=== PATIENT | female | born 1955 | race African-American/Black ===

== ENCOUNTER 2017-03-05 16:42 | Emergency (ER) | payer MEDICARE ==
[~2017-03-05] VITALS: Ht 160 cm; Wt 72.6 kg
[~2017-03-05 16:42] MED LIST: ALBUTEROL SULF8.5 GM INH; AMOXICILLIN500 MG ORAL; ASPIR 8181 MG ORAL; CYCLOBENZAPRINE10 MG ORAL; IBUPROFEN600 MG ORAL; KEFLEX500 MG ORAL; LEVAQUIN500 MG ORAL; LORAZEPAM1 MG ORAL; NORCO 5-325 TA1 EAC1 ORAL; NORCO 5-325 TA1 EACH ORAL; PEPCID40 MG PO; PERCOCET 5-3251 EACH ORAL; PRAVACHOL20 MG PO; PROMETHAZINE-C118 M1 ORAL; TRAMADOL HCL50 MG ORAL; TYLENOL PM EX-1 EACH PO
[2017-03-05 16:54] VITALS: BP 148/82
[2017-03-05] MEDS ORDERED: Tylenol #3 tab (300mg/30mg) ORAL ONE (17:15)
[2017-03-05] MEDS ORDERED: ACETAMINOPHEN-1 EAC1 ORAL (18:09)
[2017-03-05] MEDS ORDERED: IBUPROFEN600 MG ORAL (18:09)
[2017-03-05 18:14] VITALS: BP 137/79
--- NOTE | 2017-03-05 21:22 | Emergency Room Report ---
History of Present Illness General Chief Complaint: Pain Source: Patient Present Illness HPI The patient is a 61-year-old female with a history of arthritis and sciatica presenting for right wrist and right hip pain. The patient denies any injury to these areas and states that she has had pain to these areas before. The patient states that pain to the right wrist as an 8/10 dull ache and does not radiate. Pain worse with movement. Pain to the right hip is described as a 8/ 10 dull ache and radiates down the back of the right leg. Pain worse with bending over and walking. The patient states that she has tried Motrin which has not helped. She states that she was prescribed Dante in the past which did help. She denies any other symptoms Allergies: Coded Allergies: No Known Allergies (Unverified , 09/29/12) Patient History Past Medical History: see triage record Pertinent Family History: none Now: No Reviewed Nursing Documentation: PMH: Agreed, PSxH: Agreed Nursing Documentation-PMH Past Medical History: No History, Except For Hx Hypertension: No Hx Pacemaker: No Hx Asthma: No Hx COPD: No Hx Diabetes: No Hx Cancer: No Hx Gastrointestinal Problems: No Hx Dialysis: No Hx Neurological Problems: No Hx Cerebrovascular Accident: No Hx Transient Ischemic Attacks: Yes Hx Seizures: No Review of Systems All Other Systems: negative except mentioned in HPI Physical Exam Vital Signs Date Time Temp Pulse Resp B/P Pulse Ox O2 Delivery O2 Flow Rate FiO2 03/05/17 16:48 97.7 76 16 148/82 100 Room Air Sp02 EP Interpretation: reviewed, normal General Appearance: no apparent distress, alert, GCS 15, non-toxic Head: normocephalic, atraumatic Eyes: bilateral eye PERRL, bilateral eye normal inspection ENT: hearing grossly normal, normal pharynx, no angioedema, normal voice Musculoskeletal: back normal, gait/station normal, normal range of motion, no calf tenderness, pelvis stable, tender - diffuse R wrist Neurologic: alert, oriented x3, responsive, motor strength/tone normal, sensory intact, normal gait, speech normal Psychiatric: judgement/insight normal, memory normal, mood/affect normal, no suicidal/homicidal ideation Reflexes: 2+ knee (R), 2+ knee (L) Medical Decision Making PA Attestation Dr. Summers is my supervising physician. Patient management was discussed with my supervising physician Diagnostic Impression: Primary Impression: Arthritis Additional Impression: Sciatica Qualified Codes: M54.31 - Sciatica, right side ER Course The patient is a 61-year-old female with a history of arthritis and sciatica presenting for right wrist and right buttock pain Ddx considered include but not limited to sprain/strain, fracture, contusion, arthritis, sciatica Physical exam: Afebrile. No apparent distress Right wrist: Full active range of motion. No obvious deformity. No edema. No erythema. There is diffuse tenderness to palpation. Right leg: There is tenderness to palpation over the right mid buttock. Normal gait. No obvious deformity The patient is given pain medication and needs to followup with PMD and pain management for further care. ER precautions are given Other X-Ray Diagnostic Results Other X-Ray Diagnostic Results : X-Ray Ordered: R wrist Date: March 05, 2017 EP Interpretation: Yes Findings: no fractures, no dislocation, no soft tissue swelling Number of Views: 3 PA Scribe Text I am acting as scribe for my supervising physician. My supervising physician's interpretation of the R wrist xrays are there are no fractures, dislocations or soft tissue swelling. Last Vital Signs Date Time Temp Pulse Resp B/P Pulse Ox O2 Delivery O2 Flow Rate FiO2 03/05/17 18:14 97.7 77 16 137/79 100 Room Air Status: improved Disposition: HOME, SELF-CARE Condition: Improved Scripts Acetaminophen With Codeine (T#3) (TYLENOL #3 TAB*) Y Tab 1 TAB ORAL Q6HR Y for For Pain, #10 TAB Prov: SALANJESSICA P.A. 03/05/17 Ibuprofen* (MOTRIN*) 600 Mg Tablet 600 MG ORAL Q6H Y for For Pain, #30 TAB Prov: TERZIANJESSICA P.A. 03/05/17 Referrals: NON PHYSICIAN (PCP) Patient Instructions: Sciatica, Arthritis Additional Instructions: I discussed my findings with the patient. All questions and concerns have been answered. Treatment and medication compliance have been addressed. I advised the patient that they need to follow up with PMD in 3-5 days. Return to ED if symptoms worsen, new symptoms arise, or if needed for any reason. Patient verbalized understanding of discharge instructions. JESSICA [email or web address].ASharon March 05, 2017 21:22
--- NOTE | 2017-03-06 10:35 | Diagnostic Imaging Report ---
Indication: Right wrist pain Technique: XRAY WRIST MIN 3V RIGHT Comparison: None Findings: There is no radiographically evident acute fracture or dislocation. Radiocarpal joint space narrowing is noted. There is a corticated ossific density radial to the radiocarpal joint space. There is also narrowing and spurring of the triscaphe and first carpometacarpal articulations. Osteopenia is noted. Impression: No radiographically evident acute fracture or dislocation. Right wrist arthrosis as above. Approximately 7 mm apparently corticated ossific density radial to the radiocarpal joint space may be related to an old injury. Clinical correlation recommended. Comparison to prior study should be made if available.
== END 2017-03-05 18:15 | disposition home or self-care (01) ==
LOC: EMR 17:34
DX: M19.90 Unspecified osteoarthritis, unspecified site (principal); M25.551 Pain in right hip; M54.31 Sciatica, right side; Z86.73 Personal history of transient ischemic attack (TIA), and cerebral infarction without residual deficits
CPT/HCPCS: 99284

== ENCOUNTER 2017-07-05 16:17 | Emergency (ER) | payer MEDICARE ==
[~2017-07-05] VITALS: Ht 160 cm; Wt 72.6 kg
[~2017-07-05 16:17] MED LIST changes: +ACETAMINOPHEN-1 EAC1 ORAL
[2017-07-05] MEDS ORDERED: NKM (16:25)
[2017-07-05 16:36] VITALS: BP 129/80
[2017-07-05] MEDS ORDERED: Tropicamide 1% Opth Soln RIGHT EYE ONE (16:45)
[2017-07-05] MEDS ORDERED: Phenylephrine 10% Opth Soln 5ml BOTH EYES ONE (16:45)
[2017-07-05] MEDS ORDERED: Proparacaine 0.5% Opth Soln 15ml BOTH EYES ONE (16:45)
[2017-07-05] MEDS ORDERED: Tropicamide 1% Opth Soln LEFT EYE ONE (16:45)
[2017-07-05 17:19] LABS: MEAN CORPUSCULAR HEMOGLOBIN 29.1 PG (27.0-31.0); MEAN CORPUSCULAR HGB CONC 33.4 G/DL (32.0-36.0); MEAN CORPUSCULAR VOLUME 87 FL (80-99); MEAN PLATELET VOLUME 7.5 FL (6.5-10.1); PLATELET COUNT 212 K/UL (150-450); RED BLOOD COUNT 4.68 M/UL (4.20-5.40); RED CELL DISTRIBUTION WIDTH 11.8 % (11.6-14.8); WHITE BLOOD COUNT 6.3 K/UL (4.8-10.8)
[2017-07-05 17:29] LABS: PROTHROMBIN TIME 10.1 SEC (9.30-11.50)
[2017-07-05 17:33] LABS: ALANINE AMINOTRANSFERASE 14 U/L (3-33); ALBUMIN/GLOBULIN RATIO 1.5 (1.0-2.7); ANION GAP 10 (5-15); ASPARTATE AMINO TRANSFERASE 18 U/L (5-40); CALCIUM 10.8 mg/dL (8.6-10.2); CARBON DIOXIDE 28 mEQ/L (20-30); CHLORIDE 103 mEQ/L (98-107); CREATININE 0.8 mg/dL (0.5-0.9); GLOMERULAR FILTRATION RATE > 60 mL/min (>60); HEMOLYSIS 16; POTASSIUM 3.6 mEQ/L (3.4-4.9); SODIUM 141 mEQ/L (135-145); TOTAL PROTEIN 7.5 g/dL (6.6-8.7)
[2017-07-05 18:16] LABS: BAND NEUTROPHILS % (MANUAL) 6 % (0-8); BASOPHILS % (MANUAL) 1 % (0-2); EOSINOPHILS % (MANUAL) 2 % (0-3); LYMPHOCYTES % (MANUAL) 50 % (20-45); NEUTROPHILS % (MANUAL) 36 % (45-75); TOTAL CELLS COUNTED 100
[2017-07-05 18:17] LABS: PLATELET ESTIMATE ADEQUATE; PLATELET MORPHOLOGY NORMAL
[2017-07-05 19:30] VITALS: BP 132/84
[2017-07-05 20:12] VITALS: BP 132/84
[2017-07-05] MEDS ORDERED: Acetaminophen 500mg (ES) tab ORAL ONE (20:15)
--- NOTE | 2017-07-05 23:07 | Emergency Room Report ---
History of Present Illness General Chief Complaint: Eye Problems Source: Patient Present Illness HPI The patient is a 61-year-old female presenting for left eye visual change. The patient states that she began to notice black specks floating around eye yesterday for no known reason. She did admit to mild pain at that time described as a 5/10 dull ache to the left eye but denies any pain at this time. She went to see her primary doctor who told her to come to the emergency department. She denies any blurred vision. She denies other visual disturbances such as flashing lights or seeing halos. She denies full occlusion of her vision. She denies other symptoms including nausea, vomiting, fever, chills, headache, dizziness, chest pain, shortness of breath Allergies: Coded Allergies: No Known Allergies (Unverified , 09/29/12) Patient History Past Medical History: see triage record Pertinent Family History: none Last Menstrual Period: Post Reviewed Nursing Documentation: PMH: Agreed, PSxH: Agreed Nursing Documentation-PMH Hx Hypertension: No Hx Pacemaker: No Hx Asthma: No Hx COPD: No Hx Diabetes: No Hx Cancer: No Hx Dialysis: No Hx Cerebrovascular Accident: No Hx Transient Ischemic Attacks: Yes Hx Seizures: No Review of Systems All Other Systems: negative except mentioned in HPI Physical Exam Vital Signs Date Time Temp Pulse Resp B/P (MAP) Pulse Ox O2 Delivery O2 Flow Rate FiO2 07/05/17 16:20 97.5 73 16 129/80 96 Room Air Sp02 EP Interpretation: reviewed, normal General Appearance: no apparent distress, alert, GCS 15, non-toxic Head: normocephalic, atraumatic Eyes: bilateral eye PERRL, bilateral eye EOMI, bilateral eye visual acuity - 20 /20 ENT: hearing grossly normal, normal pharynx, no angioedema, normal voice Respiratory: chest non-tender, lungs clear, normal breath sounds, speaking full sentences Cardiovascular #1: regular rate, rhythm, no edema Musculoskeletal: back normal, gait/station normal, normal range of motion, non- tender Neurologic: alert, oriented x3, responsive, motor strength/tone normal, sensory intact, speech normal Psychiatric: judgement/insight normal, memory normal, mood/affect normal, no suicidal/homicidal ideation Skin: normal color, no rash, warm/dry, well hydrated Lymphatic: no adenopathy Medical Decision Making PA Attestation Dr. Summers is my supervising physician. Patient management was discussed with my supervising physician Diagnostic Impression: Primary Impression: Retinal hemorrhage of left eye ER Course The patient is a 61-year-old female presenting for left eye visual change. Differential diagnoses considered but not limited to: Retinal detachment, retinal hemorrhage, amaurosis fugax, conjunctivitis, corneal abrasion, acute glaucoma, among others Traveling Passenger Agent Dr. Rodas was consulted. He recommended Anesthetizing both eyes and then applying tropicamide and phenylephrine. After these medications took effect, he arrived at the emergency department where his physical exam found findings consistent with retinal hemorrhage. No active bleeding was seen at this time. He told the patient she needs to follow up with ophthalmology as soon as possible and to not exert herself in any way in order to prevent further bleeding or injury. The patient understands these instructions. She will followup as soon as possible. ER precautions given Laboratory Tests Test 07/05/17 17:05 White Blood Count 6.3 K/UL (4.8-10.8) Red Blood Count 4.68 M/UL (4.20-5.40) Hemoglobin 13.6 G/DL (12.0-16.0) Hematocrit 40.8 % (37.0-47.0) Mean Corpuscular Volume 87 FL (80-99) Mean Corpuscular Hemoglobin 29.1 PG (27.0-31.0) Mean Corpuscular Hemoglobin Concent 33.4 G/DL (32.0-36.0) Red Cell Distribution Width 11.8 % (11.6-14.8) Platelet Count 212 K/UL (150-450) Mean Platelet Volume 7.5 FL (6.5-10.1) Neutrophils (%) (Auto) % (45.0-75.0) Lymphocytes (%) (Auto) % (20.0-45.0) Monocytes (%) (Auto) % (1.0-10.0) Eosinophils (%) (Auto) % (0.0-3.0) Basophils (%) (Auto) % (0.0-2.0) Differential Total Cells Counted 100 Neutrophils % (Manual) 36 % (45-75) L Lymphocytes % (Manual) 50 % (20-45) H Monocytes % (Manual) 5 % (1-10) Eosinophils % (Manual) 2 % (0-3) Basophils % (Manual) 1 % (0-2) Band Neutrophils 6 % (0-8) Platelet Estimate Adequate Platelet Morphology Normal Red Blood Cell Morphology Normal Prothrombin Time 10.1 SEC (9.30-11.50) Prothrombin Time INR 1.0 (0.9-1.1) PTT 28 SEC (23-33) Sodium Level 141 mEQ/L (135-145) Potassium Level 3.6 mEQ/L (3.4-4.9) Chloride Level 103 mEQ/L (98-107) Carbon Dioxide Level 28 mEQ/L (20-30) Anion Gap 10 (5-15) Blood Urea Nitrogen 8 mg/dL (7-23) Creatinine 0.8 mg/dL (0.5-0.9) Estimate Glomerular Filtration Rate > 60 mL/min (>60) Glucose Level 94 mg/dL (74-106) Calcium Level 10.8 mg/dL (8.6-10.2) H Total Bilirubin 0.5 mg/dL (0.0-1.2) Aspartate Amino Transferase (AST) 18 U/L (5-40) Alanine Aminotransferase (ALT) 14 U/L (3-33) Alkaline Phosphatase 89 U/L (35-104) Total Protein 7.5 g/dL (6.6-8.7) Albumin 4.6 g/dL (3.5-5.2) Globulin 2.9 g/dL Albumin/Globulin Ratio 1.5 (1.0-2.7) Lab Results Impression Unremarkable Last Vital Signs Date Time Temp Pulse Resp B/P (MAP) Pulse Ox O2 Delivery O2 Flow Rate FiO2 07/05/17 19:30 97.4 62 17 132/84 97 Room Air Status: improved Disposition: HOME, SELF-CARE Condition: Improved Patient Instructions: Retinal Detachment Additional Instructions: I discussed my findings with the patient. All questions and concerns have been answered. Treatment and medication compliance have been addressed.Return to ED if symptoms worsen, new symptoms arise, or if needed for any reason. Patient verbalized understanding of discharge instructions. The patient was advised she needs to follow up with her primary doctor and retinal specialist as soon as possible. She will refrain from strenuous activity including exercise and weight lifting. She is given precautions to return to the emergency department JESSICA WALTERS Jul 05, 2017 23:07
== END 2017-07-05 20:12 | disposition home or self-care (01) ==
LOC: EMR 18:17
DX: H35.62 Retinal hemorrhage, left eye (principal); Z86.73 Personal history of transient ischemic attack (TIA), and cerebral infarction without residual deficits
CPT/HCPCS: 36415; 80053; 85007; 85025; 85610; 85730; 99284

== ENCOUNTER 2018-07-25 10:19 | Emergency (ER) | payer MEDICARE, OTHER ==
[~2018-07-25] VITALS: Ht 162.6 cm; Wt 72.6 kg
[~2018-07-25 10:19] MED LIST changes: +NKM
[2018-07-25 10:31] VITALS: BP 144/81
[2018-07-25 11:19] LABS: BASOPHILS % (AUTO) 1.8 % (0.0-2.0); EOSINOPHILS % (AUTO) 2.6 % (0.0-3.0); HEMATOCRIT 38.6 % (37.0-47.0); HEMOGLOBIN 12.5 G/DL (12.0-16.0); LYMPHOCYTES % (AUTO) 45.5 % (20.0-45.0); MEAN CORPUSCULAR VOLUME 87 FL (80-99); MONOCYTES % (AUTO) 6.5 % (1.0-10.0); NEUTROPHILS % (AUTO) 43.7 % (45.0-75.0); PLATELET COUNT 219 K/UL (150-450); RED BLOOD COUNT 4.45 M/UL (4.20-5.40); RED CELL DISTRIBUTION WIDTH 11.4 % (11.6-14.8); WHITE BLOOD COUNT 5.7 K/UL (4.8-10.8)
[2018-07-25 11:27] LABS: ANION GAP 8 mmol/L (5-15); BLOOD UREA NITROGEN 11 mg/dL (7-18); CALCIUM 10.2 MG/DL (8.5-10.1); CARBON DIOXIDE 27 MMOL/L (21-32); CHLORIDE 105 MMOL/L (98-107); CREATININE 0.7 MG/DL (0.55-1.30); POTASSIUM 3.9 MMOL/L (3.5-5.1); SODIUM 140 MMOL/L (136-145)
--- NOTE | 2018-07-25 11:28 | Diagnostic Imaging Report ---
Indication: Chest pain Technique: One view of the chest Comparison: 02/14/2016 Findings: Lungs and pleural spaces are clear. Heart size is normal. The aorta is tortuous. No significant interim change Impression: No acute process
[2018-07-25 11:44] LABS: ALANINE AMINOTRANSFERASE 22 U/L (12-78); ALBUMIN 3.7 G/DL (3.4-5.0); ALKALINE PHOSPHATASE 98 U/L (46-116); ASPARTATE AMINO TRANSFERASE 18 U/L (15-37); BILIRUBIN,TOTAL 0.3 MG/DL (0.2-1.0); CKMB < 0.5 NG/ML (0.0-3.6); CREATINE KINASE 61 U/L (26-308)
[2018-07-25 12:15] VITALS: BP 130/58
[2018-07-25] MEDS ORDERED: Lidocaine 2% Visc 15ml soln ORAL ONE (12:45)
[2018-07-25 13:11] LABS: APPEARANCE,URINE CLEAR; BILIRUBIN, URINE NEGATIVE (NEGATIVE); COLOR,URINE PALE YELLOW; GLUCOSE, URINE (UA) NEGATIVE (NEGATIVE); KETONES,URINE NEGATIVE (NEGATIVE); LEUKOCYTE ESTERASE ,URINE 1+ (NEGATIVE); NITRITE,URINE NEGATIVE (NEGATIVE); PH,URINE 7 (4.5-8.0); PROTEIN,URINE NEGATIVE (NEGATIVE); UROBILINOGEN,URINE NORMAL MG/DL (0.0-1.0)
[2018-07-25 14:40] VITALS: BP 134/77
--- NOTE | 2018-07-25 14:54 | Emergency Room Report ---
History of Present Illness General Chief Complaint: Chest Pain Source: Patient Present Illness Allergies: Coded Allergies: No Known Allergies (Unverified , 09/29/12) Patient History Last Menstrual Period: na Nursing Documentation-PMH Past Medical History: No History, Except For Hx Hypertension: No Hx Pacemaker: No Hx Asthma: No Hx COPD: No Hx Diabetes: No Hx Cancer: No Hx Dialysis: No Hx Cerebrovascular Accident: No Hx Transient Ischemic Attacks: Yes Hx Seizures: No Physical Exam Vital Signs Date Time Temp Pulse Resp B/P (MAP) Pulse Ox O2 Delivery O2 Flow Rate FiO2 07/25/18 10:21 97.5 73 18 144/81 94 Room Air 97.5 Medical Decision Making Diagnostic Impression: Primary Impression: Chest pain Laboratory Tests Test 07/25/18 10:40 07/25/18 12:20 White Blood Count 5.7 K/UL (4.8-10.8) Red Blood Count 4.45 M/UL (4.20-5.40) Hemoglobin 12.5 G/DL (12.0-16.0) Hematocrit 38.6 % (37.0-47.0) Mean Corpuscular Volume 87 FL (80-99) Mean Corpuscular Hemoglobin 28.0 PG (27.0-31.0) Mean Corpuscular Hemoglobin Concent 32.3 G/DL (32.0-36.0) Red Cell Distribution Width 11.4 % (11.6-14.8) L Platelet Count 219 K/UL (150-450) Mean Platelet Volume 7.3 FL (6.5-10.1) Neutrophils (%) (Auto) 43.7 % (45.0-75.0) L Lymphocytes (%) (Auto) 45.5 % (20.0-45.0) H Monocytes (%) (Auto) 6.5 % (1.0-10.0) Eosinophils (%) (Auto) 2.6 % (0.0-3.0) Basophils (%) (Auto) 1.8 % (0.0-2.0) Prothrombin Time 10.4 SEC (9.30-11.50) Prothrombin Time INR 1.0 (0.9-1.1) PTT 29 SEC (23-33) D-Dimer 0.28 mg/L FEU (0.00-0.49) Sodium Level 140 MMOL/L (136-145) Potassium Level 3.9 MMOL/L (3.5-5.1) Chloride Level 105 MMOL/L (98-107) Carbon Dioxide Level 27 MMOL/L (21-32) Anion Gap 8 mmol/L (5-15) Blood Urea Nitrogen 11 mg/dL (7-18) Creatinine 0.7 MG/DL (0.55-1.30) Estimate Glomerular Filtration Rate > 60 mL/min (>60) Glucose Level 94 MG/DL (74-106) Calcium Level 10.2 MG/DL (8.5-10.1) H Total Bilirubin 0.3 MG/DL (0.2-1.0) Aspartate Amino Transferase (AST) 18 U/L (15-37) Alanine Aminotransferase (ALT) 22 U/L (12-78) Alkaline Phosphatase 98 U/L (46-116) Total Creatine Kinase 61 U/L (26-308) Creatine Kinase MB < 0.5 NG/ML (0.0-3.6) Creatine Kinase MB Relative Index 0.8 Troponin I 0.000 ng/mL (0.000-0.056) Total Protein 7.5 G/DL (6.4-8.2) Albumin 3.7 G/DL (3.4-5.0) Globulin 3.8 g/dL Albumin/Globulin Ratio 1.0 (1.0-2.7) Urine Color Pale yellow Urine Appearance Clear Urine pH 7 (4.5-8.0) Urine Specific [place] 1.005 (1.005-1.035) Urine Protein Negative (NEGATIVE) Urine Glucose (UA) Negative (NEGATIVE) Urine Ketones Negative (NEGATIVE) Urine Blood Negative (NEGATIVE) Urine Nitrite Negative (NEGATIVE) Urine Bilirubin Negative (NEGATIVE) Urine Urobilinogen Normal MG/DL (0.0-1.0) Urine Leukocyte Esterase 1+ (NEGATIVE) H Urine RBC 0-2 /HPF (0 - 2) Urine WBC 0-2 /HPF (0 - 2) Urine Squamous Epithelial Cells Occasional /LPF Urine Bacteria Occasional /HPF (NONE) EKG Diagnostic Results Rate: normal Rhythm: NSR ST Segments: no acute changes Rhythm Strip Diag. Results EP Interpretation: yes Rate: 70's Rhythm: NSR, no PVC's, no ectopy Chest X-Ray Diagnostic Results Chest X-Ray Diagnostic Results : Chest X-Ray Ordered: Yes # of Views/Limited/Complete: 1 View Indication: Chest Pain EP Interpretation: Yes Interpretation: no consolidation, no effusion, no pneumothorax, no acute cardiopulmonary disease Impression: No acute disease Electronically Signed by: Janice Last Vital Signs Date Time Temp Pulse Resp B/P (MAP) Pulse Ox O2 Delivery O2 Flow Rate FiO2 07/25/18 12:15 98.0 76 19 130/58 100 Room Air 98.0 [facility] Condition: Serious Referrals: NON PHYSICIAN (PCP) Emmy Summers DO Jul 25, 2018 14:54
[2018-07-25 16:35] VITALS: BP 141/74
--- NOTE | 2018-07-26 19:05 | Cardiology Report ---
APPROVED REPORT EKG Measurement Heart [id number] Normal sinus rhythm Possible Left atrial enlargement Left ventricular hypertrophy Abnormal ECG
== END 2018-07-25 16:35 | disposition short-term general hospital (02) ==
LOC: EMR 10:38
DX: R07.9 Chest pain, unspecified (principal); Z86.73 Personal history of transient ischemic attack (TIA), and cerebral infarction without residual deficits
CPT/HCPCS: 36415; 71045; 80053; 81003; 82550; 82553; 84484; 85025; 85379; 85610; 85730; 93005; 99285